=== PATIENT | male | born 1995 | race Caucasian/White ===

== ENCOUNTER 2023-03-06 11:45 | Emergency (ER) | payer OTHER ==
[2023-03-06] MEDS ORDERED: TETRACAINE 0.5% STERI-UNIT SOL OP STA (12:23)
[2023-03-06] MEDS ORDERED: Eye-Stream Solution OP ONE (12:24)
[2023-03-06] MEDS ORDERED: Fluor-I-Strip/Ful-Flo OP ONE ×2 (12:24→12:27)
[2023-03-06] MEDS ORDERED: TETRACAINE 0.5% STERI-UNIT SOL OP ONE (12:27)
[2023-03-06] MEDS ORDERED: Eye-Stream Solution ONE (12:28)
[2023-03-06] MEDS ORDERED: NORCO 5/325 MG PO ONE (12:44)
[2023-03-06] MEDS ORDERED: NORCO 5/325 MG ONE (12:46)
[2023-03-06 12:48] VITALS: PULSE 78; O2SAT 98
--- NOTE | 2023-03-06 12:50 | ERPHSYRPT ---
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 Pt flushed area immediately and continued working woke this and with increased pain and visual distrubtance. Triage Nursing Assessment: Pt p/w/d resp easy non labored. pt reports pain of 2/10. pt states pain and vision worsens when he is looking straight ahead. PT right eye is very red to eye and to eye lid, minimal swelling noted pt having difficulty opening completely. EYE EXAM. Both: 20/50. Left: 20/50. Right: 20/100 Physician History: 27 yo WM w R ocular pain after working w rao yesterday. Pt feels like he has something in his eye. He does not wear contact lenses but does wear glasses. There is no discharge. Timing/Duration: yesterday Location: right eye Severity: mild Apparent Injury: possibly Associated Symptoms: redness, foreign body sensation Visual Assistive Devices: Glasses Chemical Exposure: No Trauma: No Welding Arc/Tanning Bed Exposure: No Allergies/Adverse Reactions: No Known Drug Allergies Allergy (Unverified 03/06/23 12:22) Home Medications: No Reportable Medications [No Reported Medications] 03/06/23 [History] Hx Tetanus, Diphtheria Vaccination/Date Given: No Travel Risk - International Travel Have you traveled outside of the country in past 3 weeks: No - Coronavirus Screening Are you exhibiting any of the following symptoms?: No Close contact with a COVID-19 positive Pt in past 14-21 Days: No - Vaccine Status Have you recieved a Covid-19 vaccination: No - Review of Systems Constitutional: No Symptoms Eyes: No Symptoms, Eye Pain, Eye Redness Ears, Nose, & Throat: No Symptoms Respiratory: No Symptoms Cardiac: No Symptoms Abdominal/Gastrointestinal: No Symptoms Genitourinary Symptoms: No Symptoms Musculoskeletal: No Symptoms Skin: No Symptoms Neurological: No Symptoms Psychological: No Symptoms Endocrine: No Symptoms Hematologic/Lymphatic: No Symptoms Immunological/Allergic: No Symptoms - Past Medical History Pertinent Past Medical History: No Other Medical History: kidney stones - Past Surgical History Other Surgical History: stent to left kidney for frequent kidney stones - Social History Smoking Status: Never smoker Drug Use: none - Nursing Vital Signs Nursing Vital Signs: Initial Vital Signs Temperature 98.7 F 03/06/23 12:47 Pulse Rate 78 03/06/23 12:47 Respiratory Rate 18 03/06/23 12:47 O2 Sat by Pulse Oximetry 98 03/06/23 12:47 Pain Scale Pain Intensity 2 - Physical Exam General Appearance: no apparent distress Vision Acuity Degree Evaluation Phase: Uncorrected Vision Acuity Right Eye: 20/50 Vision Acuity Left Eye: 20/50 Eye Exam: right eye: other (R eye anes w Tetracaine/No FB w regular exam/Fluorescein applied, UV exam w small CB at 6 O'clock/No FB observed), bilateral eye: PERRL, EOMI Ears, Nose, Throat Exam: normal ENT inspection, TMs normal, pharynx normal Neck Exam: normal inspection, non-tender, supple, full range of motion, No meningismus, No mass, No Brudzinski, No Kernig's Respiratory Exam: normal breath sounds, lungs clear, airway intact, No respiratory distress Cardiovascular Exam: regular rate/rhythm, normal heart sounds, normal peripheral pulses, capillary refill <2 sec, edema, No murmur Gastrointestinal Exam: soft, normal bowel sounds, No tenderness Extremity Exam: normal inspection, normal range of motion Neurologic: alert, oriented x 3, cooperative, bathhouse keeper II-XII nml as tested, normal mood/affect, nml cerebellar function, nml station & gait, sensation nml Skin Exam: normal color, warm, dry Lymphatic: No adenopathy Procedures - Eye Procedure Time of Procedure: 12:46 Tetracaine Drops Administered: Yes Eye FB Removal: no removal w/ cotton swab, no removal w/ needle Remaining Material after FB Removal: none - Course Nursing assessment & vital signs reviewed: Yes Ordered Tests: Medication Summary Discontinued Medications Generic Name Dose Route Start Last Admin Trade Name Leonard PRN Reason Stop Dose Admin Hydrocodone Bitart/Acetaminophen 1 tab 03/06/23 12:44 03/06/23 12:47 Hydrocodone/Apap 5/325 1 Tab Tablet PO 03/06/23 12:45 1 tab STAT ONE Administration Hydrocodone Bitart/Acetaminophen Confirm 03/06/23 12:46 Hydrocodone/Apap 5/325 1 Tab Tablet Administered 03/06/23 12:47 Dose 1 tab .ROUTE .STK-MED ONE Eye Irrigation Solution 15 ml 03/06/23 12:24 03/06/23 12:28 Sodium/Potassium/Cj/Magnesium 30 Ml Eye Wash OP 03/06/23 12:25 15 ml STAT ONE Administration Eye Irrigation Solution Confirm 03/06/23 12:28 Sodium/Potassium/Cj/Magnesium 30 Ml Eye Wash Administered 03/06/23 12:29 Dose 30 ml .ROUTE .STK-MED ONE Fluorescein Sodium 1 mg 03/06/23 12:24 03/06/23 12:28 Fluorescein Sodium 1 Mg/Strip Strip OP 03/06/23 12:25 1 mg STAT ONE Administration Fluorescein Sodium Confirm 03/06/23 12:27 Fluorescein Sodium 1 Mg/Strip Strip Administered 03/06/23 12:28 Dose 1 mg OP .STK-MED ONE Tetracaine HCl 4 ml 03/06/23 12:23 03/06/23 12:28 Tetracaine Hcl/Pf 4 Ml Bottle OP 03/06/23 12:24 4 ml STAT STA Administration Tetracaine HCl Confirm 03/06/23 12:27 Tetracaine Hcl/Pf 4 Ml Bottle Administered 03/06/23 12:28 Dose 4 ml OP .STK-MED ONE - Progress Progress: improved Progress Note: 03/06/23 15:40 Nursing note and vital signs reviewed No food or housing insecurities noted Tetracaine R eye per physician No evidence of FB on exam Fluorscein R eye per physician/UV exam w small abrasion at 6 o'clock Exam somewhat limited because pt had trouble keeping his eye open, even w physician traction Flushing 5po x1 Pt advised to f/u w eye doctor for any visual impairment or continued pain Counseled pt/family regarding: diagnosis, need for follow-up Medical Desision Making - Independent Historian Additional History obtained from: Spouse - Risk of complications The pt has a mod risk of morbidity or mortality based on: Need for prescription drug management - Departure Departure Disposition: Home Clinical Impression: Corneal abrasion Condition: Stable Critical Care Time: No Referrals: Provider,Unknown [NON-STAFF PHY W/O PRIVILEGES] - Follow up/PCP as directed Instructions: Corneal Abrasion (DC) Additional Instructions: Go to a dark room and keep eye shut for 8-12 hours Do not rub eye Ciloxan 2 drops every 4 hours for 5 days Follow up with your eye doctor if pain persists or if any visual impairment
== END 2023-03-06 13:01 | disposition home or self-care (01) ==
LOC: ED 11:45
DX: S05.01XA Injury of conjunctiva and corneal abrasion without foreign body, right eye, initial encounter (principal); W20.8XXA Other cause of strike by thrown, projected or falling object, initial encounter; Y93.H3 Activity, building and construction; Z28.310 Unvaccinated for COVID-19
CPT/HCPCS: 99281; A9270-GY

== ENCOUNTER 2023-06-03 10:29 | Emergency (ER) | payer OTHER ==
[2023-06-03] MEDS ORDERED: XYLOCAINE 1% HCL 20 ML MDV IJ ONE (10:30)
[2023-06-03 10:50] VITALS: BP 138/86; PULSE 95; TEMP 98.1; O2SAT 99
[2023-06-03] MEDS ORDERED: Adacel Vial IM ONE ×2 (10:50→10:52)
--- NOTE | 2023-06-03 11:15 | ERPHSYRPT ---
- History of Present Illness Time Seen by Provider: 06/03/23 10:56 Source: patient Exam Limitations: no limitations Patient Subjective Stated Complaint: Pt cut left thumb with a razor knife Triage Nursing Assessment: Pt brought self to the ER, vitals wnl, rates pain as 8/10, 3.5-4 cm laceration to the left proximal thumb, moderately bleeding, pulses normal, skin n/w/d, pt is right handed, doesn't appear to be in any distress Physician History: 27 years old [id number] male presented in the ER with chief complaint of left thumb laceration while he was cutting stuff with a razor blade prior to arrival. Patient reports moderate intensity sharp pain with palpation and movements. Continuously bleeding. No numbness or tingling at the thumb tip. Intact movements at interphalangeal joint but limited because of pain. Patient has a 3.5 cm curved laceration left thumb proximal phalanx with slow oozing. No active spurting noticed. Able to flex extend at interphalangeal joint. Intact sensations at the thumb tip. Cap refill less than 3 seconds. Under local anesthesia laceration is repaired. Tetanus is updated. It was a clean wound, do not think needs antibiotic. Recommended outpatient follow-up. Allergies/Adverse Reactions: codeine Allergy (Verified 06/03/23 10:50) Hx Tetanus, Diphtheria Vaccination/Date Given: No Travel Risk - International Travel Have you traveled outside of the country in past 3 weeks: No - Coronavirus Screening Are you exhibiting any of the following symptoms?: No Close contact with a COVID-19 positive Pt in past 14-21 Days: No - Vaccine Status Have you recieved a Covid-19 vaccination: No - Review of Systems Constitutional: No Symptoms Ears, Nose, & Throat: No Symptoms Respiratory: No Symptoms Cardiac: No Symptoms Abdominal/Gastrointestinal: No Symptoms Genitourinary Symptoms: No Symptoms Musculoskeletal: Injury Skin: Skin Lesions Neurological: No Symptoms Endocrine: No Symptoms - Past Medical History Pertinent Past Medical History: Yes History: Other Other Medical History: kidney stones - Past Surgical History Past Surgical History: Yes Other Surgical History: stent to left kidney for frequent kidney stones - Social History Smoking Status: Former smoker Exposure to second hand smoke: No Drug Use: none Patient Lives Alone: No - Nursing Vital Signs Nursing Vital Signs: Initial Vital Signs Temperature 98.1 F 06/03/23 10:41 Pulse Rate 95 H 06/03/23 10:41 Blood Pressure 138/86 06/03/23 10:41 O2 Sat by Pulse Oximetry 99 06/03/23 10:41 Pain Scale Pain Intensity 8 - Physical Exam General Appearance: no apparent distress, alert Eye Exam: PERRL/EOMI Neck Exam: normal inspection, full range of motion Respiratory Exam: normal breath sounds, lungs clear Cardiovascular Exam: regular rate/rhythm, normal heart sounds Back Exam: normal inspection Extremity Exam: normal range of motion, lacerations (3.5 cm laceration left thumb.), tenderness Neurologic Exam: alert, oriented x 3, cooperative, [place] II-XII nml as tested Skin Exam: normal color SpO2 Interpretation: normal SpO2: 99 O2 Delivery: Room Air Procedures - Laceration/Wound Repair Left Dorsal Hand Time of Procedure: 11:00 Wound Location: Left Wound Length (cm): 3.5 Wound's Depth, Shape: into muscle Wound Explored: clean Irrigated: Yes Hibiclens Prep: Yes Anesthesia: 1% Lidocaine Volume Anesthetic (ccs): 8 Wound Repaired With: sutures Suture Size/Type: 4-0 Number of Sutures: 7 Layer Closure?: No Sterile Dressing Applied?: Yes Ordered Tests: Medication Summary Discontinued Medications Generic Name Dose Route Start Last Admin Trade Name Dezq PRN Reason Stop Dose Admin Diphtheria/Tetanus/Acell Pertussis 0.5 ml 06/03/23 10:50 06/03/23 10:52 Tdap --Diph,Pertuss(Acell),Tet Vac/Pf 0.5 Ml Vial IM 06/03/23 10:51 0.5 ml .ONCE ONE Administration Diphtheria/Tetanus/Acell Pertussis Confirm 06/03/23 10:52 Tdap --Diph,Pertuss(Acell),Tet Vac/Pf 0.5 Ml Vial Administered 06/03/23 10:53 Dose 0.5 ml IM .STK-MED ONE - Progress Progress Note: 06/03/23 11:13 27 years old [id number] male presented in the ER with chief complaint of left thumb laceration while he was cutting stuff with a razor blade prior to arrival. Patient reports moderate intensity sharp pain with palpation and movements. Continuously bleeding. No numbness or tingling at the thumb tip. Intact movements at interphalangeal joint but limited because of pain. Patient has a 3.5 cm curved laceration left thumb proximal phalanx with slow oozing. No active spurting noticed. Able to flex extend at interphalangeal joint. Intact sensations at the thumb tip. Cap refill less than 3 seconds. Under local anesthesia laceration is repaired. Tetanus is updated. It was a clean wound, do not think needs antibiotic. Recommended outpatient follow-up. Counseled pt/family regarding: diagnosis, need for follow-up Medical Desision Making - Diagnostic Testing Diagnostic test were ordered, analyzed, and reviewed by me: No - Departure Departure Disposition: Home Clinical Impression: Thumb laceration Condition: Stable Critical Care Time: No Referrals: DOCTOR,NO FAMILY [Primary Care Provider] - Follow up with PCP 2 days Instructions: Laceration Repair With Stitches (DC) Additional Instructions: Take Tylenol/ibuprofen as needed. Intermittent ice application. Follow-up with primary care for reevaluation in 1 to 2 days. Return to ER for intractable pain/swelling/discharge/numbness tingling in the thumb. Suture removal in 2 weeks. Prescriptions: Ibuprofen 600 mg PO Q6HPRN PRN 10 Days #20 tablet PRN Reason: Pain
== END 2023-06-03 11:28 | disposition home or self-care (01) ==
LOC: ED 10:29
DX: S61.012A Laceration without foreign body of left thumb without damage to nail, initial encounter (principal); W26.8XXA Contact with other sharp object(s), not elsewhere classified, initial encounter; Z28.310 Unvaccinated for COVID-19; Z23 Encounter for immunization
CPT/HCPCS: 12002; 90471; 90715; 99282